=== PATIENT | female | born 1980 | race Caucasian/White ===

== ENCOUNTER → 2018-04-14 09:50 | Day surgery (SDC) | payer BC ==
[~2018-04-14 09:50] MED LIST: Buffered Lidocaine 0.9% SYRIN* 5 ML/SYR SYRINGE INTRADERM ONE; Cocaine 4% TOPICAL* 4 ML TOP.SOLN ONE; Dexamethasone IV* 4 MG/ML 1 ML (4 MG) IV SLOW PU ONE; Dexamethasone IV* 4 MG/ML 1 ML (4 MG) ONE; DiMENhydriNATE IV* 50 MG/ML VIAL IV PUSH PRN; DiMENhydriNATE IV* 50 MG/ML VIAL ONE; Famotidine IV* 10 MG/ML 2 ML (20 mg) IV ONE; Famotidine IV* 10 MG/ML 2 ML (20 mg) ONE; Gelatin ADSORBABLE (OPHTH)* OPHTH.FILM ONE; Gelfoam 12-7 ADSORBABL SPONGE* 1 EA SPONGE ONE; HYDROcodone/ACETAMIN 5-325 MG* 1 TAB ONE; Lactated Ringers 1000 ML Bag* 1,000 ML IV SCH; Lidocaine 2% EPI 1:200000 MPF*10-20 ML VIAL ONE; Lidocaine 2% PF * 5 ML VIAL ONE; Midazolam* 1 MG/ML 2 ML VIAL (2 MG) ONE; Naloxone* 0.4 MG/ML 1 ML VIAL IV PRN; Ondansetron INJ* 2 MG/ML VIAL ONE; Oxymetazoline 0.05% NASAL SPR* 15 ML BTL ONE; Propofol* 10 MG/ML 20 ML BTL ONE; Scopolamine 1.5 mg* PATCH ONE; Scopolamine 1.5 mg* PATCH TRANSDERM SCH; Triamcinolone Acetonide* 40 MG/ML 1 ML VIAL ONE; fentaNYL* 50 MCG/ML 2 ML VIAL (100 MCG VIAL) ONE
[2018-04-14] MEDS: fentaNYL* 50 MCG/ML 2 ML VIAL (100 MCG VIAL) IV PRN ×2 (13:20→13:37)
[2018-04-14 15:04] VITALS: BP 136/77
--- NOTE | 2018-04-14 20:10 | OP ---
DATE OF OPERATION: 04/14/18 - SDS DATE OF : [birth year]. SURGEON: Barry Haro MD. PRE-OP DIAGNOSES: Chronic eustachian tube dysfunction, left ear; chronic nasal dyspnea; deviated nasal septum; often facial pressure and pain with a large septal spur with hypertrophied turbinates. POST-OP DIAGNOSES: Chronic eustachian tube dysfunction, left ear; chronic nasal dyspnea; deviated nasal septum; often facial pressure and pain with a large septal spur with hypertrophied turbinates. OPERATIVE PROCEDURE: Septoplasty submucosal resection of the inferior turbinates; placement of left ear tympanostomy tube; eustachian tube balloon dilation left side. DESCRIPTION OF PROCEDURE: The patient was taken to the operating room. General anesthetic was given and the patient was intubated. The left ear was examined. Previously, the patient has had T-tube and elected for another T-tube in his ear. Anterior inferior myringotomy incision created. T-tube was placed. We then turned our attention to the nose and eustachian area. Eustachian tube was examined on the left side and the Instaclustrrent balloon system was utilized to introduce the guidewire and subsequently the balloon through. This was inflated at 12 bar pressure for 2 minutes timed. Once the catheter was removed, there was no evidence of bleeding. Adequate dilatation was carried out. Next, we turned our attention to the septum. Right hemitransfixion incision was created. Mucoperichondrial flap was elevated. Quadrangular cartilage was disarticulated. Portion of the vomer ethmoidal bone with the large septal spur was removed. Quadrangular cartilage was replaced in the midline, secured with multiple mattress sutures. We then turned our attention to the inferior turbinates. Small incisions of the inferior turbinates were carried out on both sides. A small amount of the inferior turbinate bone was resected. Hemostasis was obtained with cautery. Once adequate cauterization was carried out, the patient was awakened and sent to recovery room in stable condition. Instrument and sponge count correct. Blood loss minimal. [id number]/[facility] #: [id number] MTDD
== END | disposition home or self-care (01) ==
LOC: OR 09:50
PROVIDERS: ATTEND Otolaryngology
DX: J34.2 Deviated nasal septum (principal); H69.82 Other specified disorders of Eustachian tube, left ear; J31.0 Chronic rhinitis; F17.210 Nicotine dependence, cigarettes, uncomplicated; J45.909 Unspecified asthma, uncomplicated; F90.9 Attention-deficit hyperactivity disorder, unspecified type; J30.89 Other allergic rhinitis
CPT/HCPCS: 81025; A9270-GY; J1100; J1240; J2250; J2405; J2704; J3010; J3301

== ENCOUNTER 2018-04-20 08:32 | Emergency (ER) | payer BC ==
--- OUTSIDE RECORDS SUMMARY | 2018-04-20 08:43 | XMS REPORT | Continuity of Care Document ---
:1980 External Reference #:[id number] Author Name Brary Haro MD Address [address] [place] [address] Care Team Providers Name Role Phone Kenia RUSSO, Osei Care Team Information Research Microbiologist Unavailable Kenia RUSSO, Osei Primary Care Physician Unavailable Payers Type Date Identification Numbers Payment Provider Subscriber Policy Number: [id number] [employer] [facility] Leda Gannon PayID: [id number] [address] [place] [address] Advance Directives Description No Information Available Problems Date Description Provider Status Onset: 10/09/2014 Dysfunction of eustachian tube Barry Haro MD Active Onset: 10/09/2014 Otogenic otalgia Barry Haro MD Active Onset: 02/22/2015 Cholesteatoma of attic Barry Haro MD Active Onset: 02/22/2015 Otorrhea Barry Haro MD Active Onset: 02/22/2015 Other specified disorders of Eustachian Barry Haro MD Active tube, left ear Onset: 01/29/2017 Otalgia Barry Haro MD Active Onset: 01/29/2017 Cellulitis and abscess of face Barry Haro MD Active Onset: 01/21/2018 Deviated nasal septum Barry Haro MD Active Onset: 12/24/2017 Chronic sinusitis Barry Haro MD Active Onset: 12/24/2017 Chronic rhinitis Barry Haro MD Active Family History Date Family Member(s) Problem(s) Comments General Cancer General Thyroid Disease General Vertigo Social History Type Date Description Comments Sex Unknown Occupation Reactor Operator Tobacco Use Start: Unknown Current Cigarette Smoker 1/2 Pack Daily x 16 yrs Tobacco Use Start: Unknown Never Smoked Cigars Tobacco Use Start: Unknown Never Smoked A Pipe Smokeless Tobacco Never Used Smokeless Tobacco ETOH Use Currently occasionally consumes alcohol Allergies, Adverse Reactions, Alerts Date Description Reaction Status Severity Comments 10/09/2014 NSAIDs swelling in eyes, SOB Active Medications Medication Date Status Form Strength Qnty SIG Indications Ordering Provider Adderall Active Tablets 30mg twice Kenia RUSSO, 000 daily Osei Estephania Active Tablets 180mg 1 by Kenia RUSSO, Allergy 000 mouth Osei every day Meclizine HCL Active Chewtabs 25mg as needed Kenia RUSSO, 000 Osei Mucinex Active Tablets ER 600mg 1 by Kenia RUSSO, 000 12HR mouth Osei twice a day Immunizations CPT Code Status Date Vaccine Lot # [id number] Given Unknown Influenza Virus Vaccine, 3 Years Of Age And Above, Intramuscular 63370 Refused 10/09/2014 Prevnar 13 For Intramuscular Use Vital Signs Date Vital Result Comment 04/05/2018 8:55am BP Systolic 143 mmHg BP Diastolic 86 mmHg Heart Rate 106 /min Respiratory Rate 18 /min Weight 196.00 lb Weight 88.906 kg Height 66 inches 5'6" Height in cm's 167.6 cm BMI (Body Mass Index) 31.6 kg/m2 12/24/2017 10:18am Weight 192.00 lb Weight 87.091 kg Height 66 inches 5'6" Height in cm's 167.6 cm BMI (Body Mass Index) 31.0 kg/m2 03/23/2017 9:57am BP Systolic 134 mmHg BP Diastolic 90 mmHg Heart Rate 97 /min Respiratory Rate 17 /min Weight 165.00 lb Weight 74.844 kg Height 66 inches 5'6" Height in cm's 167.6 cm BMI (Body Mass Index) 26.6 kg/m2 02/05/2017 3:50pm BP Systolic 130 mmHg BP Diastolic 77 mmHg Heart Rate 73 /min Respiratory Rate 17 /min Weight 165.00 lb Weight 74.844 kg Height 66 inches 5'6" Height in cm's 167.6 cm BMI (Body Mass Index) 26.6 kg/m2 01/29/2017 2:16pm BP Systolic 122 mmHg BP Diastolic 73 mmHg Heart Rate 80 /min Respiratory Rate 18 /min Weight 165.00 lb Weight 74.844 kg Height 66 inches 5'6" Height in cm's 167.6 cm BMI (Body Mass Index) 26.6 kg/m2 03/29/2015 8:32am BP Systolic 124 mmHg BP Diastolic 73 mmHg Heart Rate 97 /min Respiratory Rate 17 /min Weight 143.00 lb Weight 64.865 kg Height 66 inches 5'6" Height in cm's 167.6 cm BMI (Body Mass Index) 23.1 kg/m2 02/22/2015 8:35am BP Systolic 104 mmHg BP Diastolic 72 mmHg Heart Rate 81 /min Respiratory Rate 17 /min Weight 143.00 lb Weight 64.865 kg Height 66 inches 5'6" Height in cm's 167.6 cm BMI (Body Mass Index) 23.1 kg/m2 11/27/2014 8:55am BP Systolic 120 mmHg BP Diastolic 72 mmHg Heart Rate 93 /min Respiratory Rate 17 /min Weight 143.00 lb Weight 64.865 kg Height 66 inches 5'6" Height in cm's 167.6 cm BMI (Body Mass Index) 23.1 kg/m2 10/13/2014 11:05am BP Systolic 119 mmHg BP Diastolic 74 mmHg Heart Rate 84 /min Respiratory Rate 17 /min Weight 143.00 lb Weight 64.865 kg Height 66 inches 5'6" Height in cm's 167.6 cm BMI (Body Mass Index) 23.1 kg/m2 10/09/2014 9:02am BP Systolic 118 mmHg BP Diastolic 76 mmHg Heart Rate 81 /min Respiratory Rate 17 /min Weight 143.00 lb Weight 64.865 kg Height 66 inches 5'6" Height in cm's 167.6 cm BMI (Body Mass Index) 23.1 kg/m2 Results Description No Information Available Procedures Date Code Description Status 02/05/2017 20108 Tympanostomy W/Tube Local Or Topical Anes. Completed 11/27/2014 67527 Tympanometry Completed 11/27/2014 46760 Pure Tone - Air Conduction Only Completed 10/13/2014 04857 Tympanostomy W/Tube Local Or Topical Anes. Completed 10/09/2014 68904 Tympanometry Completed 10/09/2014 28718 Comprehensive Audiogram Completed Encounters Type Date Location Provider Dx Diagnosis Office Visit 04/05/2018 [place] Barry Ruparelia, J34.2 Deviated nasal 9:00a 04/27/07 MD septum H69.82 Other specified disorders of Eustachian tube, left ear J31.0 Chronic rhinitis Office Visit 01/21/2018 2:15p [place],After 04/27/07 Barry Brotherselia, J31.0 Chronic MD rhinitis H69.82 Other specified disorders of Eustachian tube, left ear J34.2 Deviated nasal septum Office Visit 12/24/2017 [place] Barry Brotherselia, H69.82 Other specified 10:00a 04/27/07 MD disorders of Eustachian tube, left ear J31.0 Chronic rhinitis J32.9 Chronic sinusitis, unspecified Office Visit 03/23/2017 [place] Barry Haro, H69.82 Other specified 10:00a 04/27/07 MD disorders of Eustachian tube, left ear Office Visit 01/29/2017 [place] Barry Haro, H69.82 Other specified 2:15p 04/27/07 MD disorders of Eustachian tube, left ear H92.09 Otalgia, unspecified ear L02.01 Cutaneous abscess of face Office Visit 04/17/2016 [place] Barry Haro, H69.82 Other specified 3:45p 04/27/07 MD disorders of Eustachian tube, left ear Office Visit 10/18/2015 [place] Barry Brotherselia, H69.82 Other specified 3:45p 04/27/07 MD disorders of Eustachian tube, left ear Office Visit 03/29/2015 [place] Barry Haro, H69.82 Other specified 8:30a 04/27/07 MD disorders of Eustachian tube, left ear Office Visit 02/22/2015 [place] Barry Haro, H69.82 Other specified 8:30a 04/27/07 MD disorders of Eustachian tube, left ear H71.02 Cholesteatoma of attic, left ear H92.12 Otorrhea, left ear Office Visit 11/27/2014 [place],After Barry Haro, 381.81 Dysfunction Of 9:15a 04/27/07 MD Eustachian Tube Office Visit 10/09/2014 [place] Barry Haro, 381.81 Dysfunction Of 9:00a 04/27/07 Eustachian Tube 388.71 Otalgia Otogenic Pain Plan of Treatment Future Appointment(s):04/22/2018 9:15 am - Barry Haro MD at [place],After 7:45 am - [place] [facility] [place] R[place] - Barry Haro MDJ34.2 Deviated nasal septumComments:Options of treatment septoplasty was discussed, Complications of septoplasty were discussed briefly Complications of septoplasty include perforation which is a hole in the septum, and difficulty with bleeding, continued nasal obstruction, possibility of infection and although very unusual, changes in the cosmetic appearance of the nose. The patient may return back to schedule for septoplasty submucosal resection of the inferior turbinates, placement of left ear tympanostomy tube, and eustachian tubeballoon dilatation left side.H69.82 Other specified disorders of Eustachian tube, left earJ31.0 Chronic rhinitis
--- NOTE | 2018-04-20 09:12 | ED ---
Throat Pain/Nasal Congestion - HPI Summary HPI Summary: This patient is a 37 year old F presenting to [facility] with a chief complaint of pain in her throat since 3 days ago. She had a right-sided septoplasty with Barry Haro MD on 04/14/2018. The patient rates the pain 6/10 in severity. Patient reports sore throat, pain with swallowing, achy, difficulty sleeping due to pain, and swollen uvula with white patches. Patient denies fever , chills, and SOB. She is not taking any medications currently. She was given hydrocodone post-operative but she has since run out of them. - History of Current Complaint Chief Complaint: EDThroatPain Time Seen by Provider: 04/20/18 08:57 Hx Obtained From: Patient Onset/Duration: Lasting Days - last 3 days, Still Present Severity: Moderate - Allergies/Home Medications Allergies/Adverse Reactions: Allergies Allergy/AdvReac Type Severity Reaction Status Date / Time NSAIDS (Non-Steroidal Allergy Severe Difficulty Verified 04/20/18 08:44 Anti-Inflamma Breathing Seasonal Allergies Allergy Runny Nose Uncoded 04/20/18 08:44 PMH/Surg Hx/FS Hx/Imm Hx Endocrine/Hematology History: Denies: Hx Diabetes Cardiovascular History: Denies: Hx Congestive Heart Failure, Hx Hypertension, Other Cardiovascular Problems/Disorders Respiratory History: Reports: Hx Asthma - allergy related asthma, Other Respiratory Problems/Disorders - deviated septum,chronic rhinitis, eustachian tube disorder GI History: Reports: Hx Irritable Bowel - frequently, thinks its food related Denies: Other GI Disorders History: Denies: Hx Renal Disease, Other Problems/Disorders Musculoskeletal History: Reports: Hx Arthritis - hands and knees painful at time , Other Musculoskeletal History - Right ankle fx-hardware in place Sensory History: Denies: Hx Contacts or Glasses, Hx Hearing Aid Opthamlomology History: Denies: Hx Contacts or Glasses Neurological History: Reports: Other Neuro Impairments/Disorders - dizziness at times Psychiatric History: Reports: Hx Anxiety, Hx Depression - Surgical History Surgery Procedure, Year, and Place: Right ankle-hardware placed. Bilateral Bunions 2010. [place] teeth extraction Hx Anesthesia Reactions: Yes - tends to be nauseous and vomits for a few days afterwards Infectious Disease History: No Infectious Disease History: Denies: Traveled Outside the [place] in Last 30 Days - Family History Known Family History: Negative: Cardiac Disease, Diabetes - Social History Alcohol Use: Occasionally Substance Use Type: Reports: Marijuana Substance Use Comment - Amount & Last Used: occasionally Smoking Status (MU): Former Smoker Amount Used/How Often: 20 years 1/2 a week, more earlier Review of Systems Negative: Fever, Chills Positive: Sore Throat - Pain with swallowing, Other - swelling in her uvula with white patches Negative: Shortness Of Breath All Other Systems Reviewed And Are Negative: Yes Physical Exam - Summary Physical Exam Summary: General: well-appearing, no pain distress Skin: warm, color reflects adequate perfusion, dry Head: normal Eyes: EOMI, ANDREAS ENT: Uvula midline is slightly swollen, oral pharynx is open. Tonsils are 1-2+ with some erythema, voice is normal. No peritonsillar abscess. Left nostril has white tissue in it, nares is open. Right nostril is open. Neck: supple, nontender Respiratory: CTA, breath sounds present Cardiovascular: RRR Abdomen: soft, nontender Bowel: present Musculoskeletal: normal, strength/ROM intact Neurological: sensory/motor intact, A&O x3 Psychological: affect/mood appropriate Triage Information Reviewed: Yes Vital Signs On Initial Exam: Initial Vitals Temp Pulse Resp BP Pulse Ox 97.4 F 96 16 139/90 98 04/20/18 08:33 04/20/18 08:33 04/20/18 08:33 04/20/18 08:33 04/20/18 08:33 Vital Signs Reviewed: Yes Diagnostics - Vital Signs Vital Signs Temp Pulse Resp BP Pulse Ox 04/20/18 08:33 97.4 F 96 16 139/90 98 - Laboratory Lab Statement: Any lab studies that have been ordered have been reviewed, and results considered in the medical decision making process. EENT Course/Dx - Course Course Of Treatment: Patient was discussed with ENT Dr. Liriano. He recommended antibiotics and a short course of steroids and follow-up with ENT this week on 04/22/18 as scheduled. - Diagnoses Provider Diagnoses: Uvulitis - Provider Notifications Discussed Care Of Patient With: Orlando Liriano - ENT Time Discussed With Above Provider: 09:11 Instructed by Provider To: Other - Give augmentin. Follow up in their office. Discharge - Sign-Out/Discharge Documenting (check all that apply): Patient Departure - Discharge Plan Condition: Stable Disposition: HOME Prescriptions: Amoxicillin/Clavulanate TAB* [Augmentin TAB 875*] 875 mg PO BID #17 tab predniSONE TAB* [Deltasone 20 MG TAB*] 40 mg PO DAILY #6 tab Patient Education Materials: Pharyngitis (ED) Referrals: Osei Aquino MD [Primary Care Provider] - Additional Instructions: FOLLOW UP WITH ENT ON 04/23/18 SCHEDULED. GET RECHECKED FOR ANY WORSENING OF YOUR CONDITION; PAIN, FEVER, DIFFICULTY BREATHING OR SWALLOWING OR QUESTIONS OR CONCERNS. - Billing Disposition and Condition Condition: STABLE Disposition: Home - Attestation Statements Document Initiated by Josefinaibe: Yes Documenting Scribe: Tomas Rollins Provider For Whom Dustin is Documenting (Include Credential): Ean Nova Scribe Attestation: Tomas Shoemaker, tatiannaed for Ean Nova on 04/20/18 at 0942. Scribe Documentation Reviewed: Yes Provider Attestation: The documentation as recorded by the Tomas finch accurately reflects the service I personally performed and the decisions made by Ean paulino Status of Scribe Document: Viewed
[2018-04-20] MEDS ORDERED: Amoxicillin/Clavulanate TAB* 875 MG PO ONE ×2 (09:39→09:40)
[2018-04-20] MEDS ORDERED: predniSONE TAB* 20 MG PO ONE ×2 (09:39→09:41)
[2018-04-20 10:12] VITALS: BP 139/95
== END 2018-04-20 10:11 | disposition home or self-care (01) ==
LOC: ED 08:32
DX: K12.2 Cellulitis and abscess of mouth (principal); J02.9 Acute pharyngitis, unspecified; Z87.891 Personal history of nicotine dependence
CPT/HCPCS: 99282; A9270-GY; J7512

== ENCOUNTER 2018-08-17 07:56 | Emergency (ER) | payer BC ==
[2018-08-17 08:07] VITALS: BP 144/86
--- NOTE | 2018-08-17 08:53 | UC ---
Lower Extremity/Ankle HPI - HPI Summary HPI Summary: PATIENT SUSTAINED AN INVERSION INJURY LEFT ANKLE WHILE WALKING DOWN THE STAIRS 3 DAYS AGO. HAS PERSISTENT PAIN AND SWELLING IN FOOT. ABLE TO BEAR WEIGHT BUT WITH DISCOMFORT. 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 - History of Current Complaint Chief Complaint: UCLowerExtremity Stated Complaint: ANKLE INJURY Time Seen by Provider: 08/17/18 08:36 Hx Obtained From: Patient Hx Last Menstrual Period: 3 weeks ago Onset/Duration: Sudden Onset, Lasting Days, Still Present Severity Initially: Moderate Severity Currently: Moderate Pain Intensity: 5 Pain Scale Used: 0-10 Numeric Aggravating Factor(s): Standing, Ambulation Alleviating Factor(s): Rest, Elevation Able to Bear Weight: Yes - Allergies/Home Medications Allergies/Adverse Reactions: Allergies Allergy/AdvReac Type Severity Reaction Status Date / Time NSAIDS (Non-Steroidal Allergy Severe Difficulty Verified 08/17/18 08:07 Anti-Inflamma Breathing Seasonal Allergies Allergy Runny Nose Uncoded 08/17/18 08:07 PMH/Surg Hx/FS Hx/Imm Hx Respiratory History: Asthma - Surgical History Surgical History: Yes Surgery Procedure, Year, and Place: Right ankle-hardware placed. Bilateral Bunions 2010. [place] teeth extraction - Family History Known Family History: Negative: Cardiac Disease, Diabetes - Social History Alcohol Use: Weekly Substance Use Type: Marijuana Substance Use Comment - Amount & Last Used: occasionally Smoking Status (MU): Former Smoker Amount Used/How Often: 20 years 1/2 a week, more earlier When Did the Patient Quit Smoking/Using Tobacco: 2017 Review of Systems All Other Systems Reviewed And Are Negative: Yes Constitutional: Positive: Negative Skin: Positive: Negative Respiratory: Positive: Negative Cardiovascular: Positive: Negative Gastrointestinal: Positive: Negative Musculoskeletal: Positive: Arthralgia, Edema Physical Exam Triage Information Reviewed: Yes Appearance: Well-Appearing, No Pain Distress, Well-Nourished Vital Signs: Initial Vital Signs Temp 97.6 F 08/17/18 08:02 Pulse 97 08/17/18 08:02 Resp 18 08/17/18 08:02 BP 144/86 08/17/18 08:02 Pulse Ox 100 08/17/18 08:02 Vital Signs Reviewed: Yes Eyes: Positive: Conjunctiva Clear ENT: Positive: Hearing grossly normal Neck: Positive: Supple Respiratory: Positive: No respiratory distress, No accessory muscle use Cardiovascular: Positive: Pulses Normal Abdomen Description: Positive: Soft Musculoskeletal: Positive: ROM Intact, Edema @ - LEFT MIDFOOT DORSOLATERALLY, Other: - TTP LEFT FOOT CUBOID/NAVICULAR Neurological: Positive: Alert Psychological: Positive: Age Appropriate Behavior Skin: Negative: Rashes Diagnostics - Radiology LEFT FOOT XRAYS Radiology Interpretation Completed By: Radiologist Summary of Radiographic Findings: NO ACUTE OSSEOUS INJURY Lower Extremity Course/Dx - Course Course Of Treatment: PATIENT ARRIVED WITH PERSISTENT LEFT MID FOOT PAIN AND TENDERNESS OVER THE CUBOID/NAVICULAR ZONE WITH SWELLING. X-RAY OBTAINED AND UNREMARKABLE. ADVISED TO REST, ELEVATE AND F/U PCP OR ORTHO IF NOT IMPROVING. NOTE FOR PARKING PROVIDED. - Differential Dx/Diagnosis Provider Diagnosis: Sprain of left foot Discharge - Sign-Out/Discharge Documenting (check all that apply): Patient Departure All imaging exams completed and their final reports reviewed: Yes - Discharge Plan Condition: Stable Disposition: HOME Patient Education Materials: Foot Sprain (ED) Forms: *Gen. Provider Communication Referrals: Saman Naik MD [Medical Doctor] - If Needed Osei Aquino MD [Primary Care Provider] - If Needed Additional Instructions: XRAY TODAY NEGATIVE FOR FRACTURE OR DISLOCATION. YOUR SYMPTOMS SHOULD IMPROVE SIGNIFICANTLY OVER THE NEXT 1-2 WEEKS. IF YOU DO NOT IMPROVE EXPECTED FOLLOW- UP WITH YOUR PCP OR ORTHO. YOU MAY BENEFIT FROM REPEAT IMAGING AT THAT TIME. OTC IBUPROFEN OR ALEVE NEEDED FOR DISCOMFORT. REST, ICE, COMPRESS, ELEVATE. BE SURE TO GO THROUGH SLOW RANGE OF MOTION AND STRETCHING EXERCISES DAILY YOU ARE ABLE TO PREVENT STIFFENING UP AND MAKING THE DISCOMFORT WORSE. - Billing Disposition and Condition Condition: STABLE Disposition: Home
== END 2018-08-17 09:39 | disposition home or self-care (01) ==
LOC: UCEAST 07:56
DX: S93.602A Unspecified sprain of left foot, initial encounter (principal); X50.1XXA Overexertion from prolonged static or awkward postures, initial encounter; Y92.9 Unspecified place or not applicable; J45.909 Unspecified asthma, uncomplicated; Z88.6 Allergy status to analgesic agent; Z87.891 Personal history of nicotine dependence
CPT/HCPCS: 99211; G0463